=== PATIENT | female | born 1955 | race Caucasian/White ===

== ENCOUNTER 2017-05-07 19:31 | Emergency (ER) | payer SELFPAY ==
[~2017-05-07] VITALS: Ht 162.6 cm; Wt 58.0 kg
[~2017-05-07 19:31] MED LIST: AUGM875T PO; MOME17I; VALI10TA PO; ZOLO50TA PO
[2017-05-07 20:16] VITALS: BP 158/74; PULSE 78; RESP 16; TEMP 99.3; O2SAT 97
[2017-05-07] MEDS ORDERED: ACETAMINOPHEN/HYDROcodone 325 MG/5 MG TAB PO ONE (22:15)
--- NOTE | 2017-05-07 22:23 | PD ---
HPI Chief Complaint: ENT Complaint Time Seen by Provider: 21:52 Travel History International Travel<30 days: No Contact w/Intl Traveler<30days: No Traveled to known affect area: No History of Present Illness HPI 61-year-old female here for evaluation of cough, sore throat, and right ear pain. Patient reports having a cough for the last week. She states it is sometimes productive of yellowish sputum, but is mostly clear. No hemoptysis. She began to have right ear pain yesterday and as noted subjective fevers and chills since this time. She tried [id number] eardrops without any relief. Ear pain is constant, severe, radiates to her posterior ear and down her right neck. She is also noted some sore throat. She is able to swallow and tolerate her secretions. No abdominal pain, vomiting, or diarrhea. PFSH Past Medical History Anxiety: Yes Depression: Yes Cancer: No Cardiovascular Problems: No Diabetes: No Diminished Hearing: No Endocrine: No Gastrointestinal Disorders: Yes Genitourinary: No Immune Disorder: No Musculoskeletal: No Neurologic: No Psychiatric: Yes Reproductive: No Respiratory: No Integumentary: Yes (Psoriasis) Thyroid Disease: No Tetanus Vaccination: < 5 Years Influenza Vaccination: No ?: Not LMP: menapause Menopausal: Yes : 2 Para: 2 Miscarriage: 0 : 0 Tubal Ligation: Yes Past Surgical History Abdominal Surgery: No Cardiac Surgery: No Ear Surgery: No Endocrine Surgery: No Eye Surgery: No Genitourinary Surgery: Yes (Hx "some sort of colon surgery") Gynecologic Surgery: Yes (TUBAL LIGATION) Oral Surgery: No Thoracic Surgery: No Other Surgery: Yes Social History Alcohol Use: Yes (occasonially) Tobacco Use: Yes (5 cigs daily) Substance Use: No Allergies-Medications (Allergen,Severity, Reaction): Coded Allergies: No Known Allergies (Unverified Adverse Reaction, Unknown, 05/07/17) Per [facility] [phone] Reported Meds & Prescriptions Reported Meds & Active Scripts Active Augmentin 875 mg Tab (Amoxicillin & Pot Clavulanate 875 mg Tab) 875 Mg Tab 1 Tab PO BID 10 Days Nasonex (Mometasone Furoate) 17 Gm [place] 1 Spr NA DAILY Reported Zoloft (Sertraline HCl) 50 Mg Tab 50 Mg PO DAILY Valium (Diazepam) 10 Mg Tab 10 Mg PO TID PRN Review of Systems Except as stated in HPI: all other systems reviewed are Neg Physical Exam Narrative GENERAL: Well-developed, well-nourished, comfortable, no apparent distress. SKIN: Focused skin assessment warm/dry. HEAD: Atraumatic. Normocephalic. EYES: Pupils equal and round. No scleral icterus. No injection or drainage. ENT: Mucous membranes pink and moist. Mild pharyngeal erythema without exudates. Uvula is midline. Normal phonation. Right tympanic membrane is erythematous and bulging, otherwise intact. Right external auditory canal is normal. Left external auditory canal and tympanic membrane are normal. NECK: Trachea midline. No JVD. CARDIOVASCULAR: No murmur appreciated. RESPIRATORY: No accessory muscle use. Clear to auscultation. Breath sounds equal bilaterally. MUSCULOSKELETAL: No obvious deformities. No clubbing. No cyanosis. No edema. NEUROLOGICAL: Awake and alert. No obvious cranial nerve deficits. Motor grossly within normal limits. Normal speech. PSYCHIATRIC: Appropriate mood and affect; insight and judgment normal. Data Data Last Documented VS Vital Signs Date Time Temp Pulse Resp B/P (MAP) Pulse Ox O2 Delivery O2 Flow Rate FiO2 05/07/17 20:16 99.3 78 16 158/74 (102) 97 Room Air Orders Orders Group A Rapid Strep Screen (05/07/17 22:02) Influenzae A/B Antigen (05/07/17 22:02) Chest, Single Ap (05/07/17 ) Acetamin-Hydrocod 325-5 Mg ([place] 5-325 (05/07/17 22:15) Strep Culture (Group A) (05/07/17 22:10) [facility] Medical Decision Making Medical Screen Exam Complete: Yes Emergency Medical Condition: Yes Medical Record Reviewed: Yes Differential Diagnosis Influenza, viral illness, URI, pneumonia, bronchitis, otitis media, strep pharyngitis Narrative Course Vital signs reviewed. Group A strep is negative. Influenza is negative. Chest x-ray: CONCLUSION: Biapical pleural-parenchymal scarring, left greater than right. Otherwise, no acute infiltrate. Patient was made aware of all findings. She was given 1 Lortab and states that her ear pain has significantly improved. I will give her Augmentin to treat for bronchitis as well as for otitis media. I will give her the name of the ENT physician business transformation analyst with him to follow-up with this week. She was advised on when to return to the emergency department. She verbalizes understanding and agreement with plan. Diagnosis Primary Impression: Bronchitis Additional Impression: Otitis media Qualified Codes: H66.90 - Otitis media, unspecified, unspecified ear Referrals: Js Scherer MD 3 days ENT Primary Care Physician 3 days Additional Instructions: Follow-up with a primary care physician this week. Follow-up with ENT Dr. Scherer or an ENT of your choice this week. Return to the emergency department for worsening symptoms or any other concerns. Scripts Hydrocodone-Acetaminophen (Hydrocodone-Acetaminophen) 5-325 mg Tab 1 TAB PO Q6H Y for PAIN, #10 TAB 0 Refills Prov: Behzad Desai MD 05/07/17 Fluconazole (Diflucan) 150 Mg Tab 150 MG PO ONCE for Infection, #1 TAB 0 Refills Prov: Behzad Desai MD 05/07/17 Amoxicillin-Clavulanate (Augmentin) 875-125 Mg Tab 1 TAB PO BID for Infection for 10 Days, #20 TAB 0 Refills Prov: Behzad Desai MD 05/07/17 Disposition: 01 DISCHARGE HOME Condition: Stable Behzad Desai MD May 07, 2017 22:23
--- NOTE | 2017-05-07 22:55 | RADRPT ---
EXAM DATE/TIME: 05/07/2017 22:25 [place] COMPARISON: No previous studies available for comparison. INDICATIONS : Cough. Congestion. MEDICAL HISTORY : None. SURGICAL HISTORY : None. ENCOUNTER: Initial ACUITY: 4 - 6 days PAIN SCORE: 6/10 LOCATION: Bilateral chest FINDINGS: A single view of the chest demonstrates the lungs to be symmetrically aerated with plain film finding s suggesting biapical pleural-parenchymal scarring, left worse than right. No acute infiltrate or eff usion. Heart size is normal. Osseous structures are intact with a prominent spur off the inferior asp ect of the left clavicle. CONCLUSION: Biapical pleural-parenchymal scarring, left greater than right. Otherwise, no acute infiltrate. Leon Armstrong MD on May 07, 2017 at 22:52 Board Certified Radiologist. This report was verified electronically.
[2017-05-07] MEDS ORDERED: DIFL150T PO (23:10)
[2017-05-07] MEDS ORDERED: AUGM875T3 PO (23:10)
[2017-05-07] MEDS ORDERED: HYDR-3516 PO (23:10)
[2017-05-07] MEDS ORDERED: AMOXICILLIN/CLAVULANATE K 875 MG TAB PO ONE (23:15)
== END 2017-05-07 23:20 | disposition home or self-care (01) ==
LOC: NEPD 19:31
DX: J40 Bronchitis, not specified as acute or chronic (principal); H66.90 Otitis media, unspecified, unspecified ear; F17.210 Nicotine dependence, cigarettes, uncomplicated
CPT/HCPCS: 71045; 87081; 87804; 87880; 99284